=== PATIENT | male | born 1955 | race Caucasian/White ===

== ENCOUNTER 2022-10-16 09:49 | Inpatient (IN) | payer MEDICARE, OTHER ==
[2022-10-16] MEDS ORDERED: ALBUTEROL SO4 2.5/IPRATROPIUM 0.5 INH SOL 3 ML VIAL.NEB. NEB ONE ×2 (10:55→11:00)
[2022-10-16 11:19] LABS: VENOUS BASE EXCESS 0.5 mmol/L (-2-2); VENOUS PCO2 33.5 mmHg (38-52); VENOUS PH 7.467 (7.310-7.410)
[2022-10-16 11:41] LABS: HEMATOCRIT 35.9 % (35.4-49); HEMOGLOBIN 11.8 GM/dL (11.7-16.9); MCH 30.3 pg (25.7-33.7); MEAN CELL VOLUME 91.8 fl (80-96); MEAN PLT VOLUME 8.9 fl (7.5-11.1); PLATELET COUNT 289 10^3/uL (134-434); RBC 3.91 M/mm3 (4.00-5.60); RDW 14.9 % (11.9-15.9); WHITE BLOOD COUNT 15.9 K/mm3 (4.0-10.0)
[2022-10-16 11:54] LABS: POTASSIUM 4.2 mmol/L (3.5-5.1)
[2022-10-16 11:56] LABS: ALBUMIN 3.1 g/dl (3.4-5.0); BLOOD UREA NITROGEN 14.9 mg/dL (7-18); CALCIUM 9.5 mg/dL (8.5-10.1)
[2022-10-16 11:59] LABS: CREATININE 0.9 mg/dL (0.55-1.3)
[2022-10-16 12:01] LABS: BILIRUBIN,TOTAL 0.4 mg/dL (0.2-1); TOT PROT 7.5 g/dl (6.4-8.2)
[2022-10-16 12:04] LABS: N-TERMINAL BNP 1860.4 pg/ml (5-125)
[2022-10-16 12:05] LABS: ACTIVATED PTT 29.1 SECONDS (25.2-36.5); INR 1.16 (0.83-1.09); PROTHROMBIN TIME (PATIENT) 13.4 SEC (9.7-13.0)
[2022-10-16] MEDS ORDERED: AZITHROMYCIN IVPB 500 MG in DEXTROSE 5%-WATER - 250 ML IVPB ONE (12:06)
[2022-10-16] MEDS ORDERED: CEFTRIAXONE 1 GM in DEXTROSE 5%-WATER - 100 ML IVPB ONE (12:06)
[2022-10-16 12:14] LABS: LACTIC ACID 2.2 mmol/L (0.4-2.0)
[2022-10-16 12:16] LABS: ANISOCYTOSIS 0; HELMET CELLS 0; HOWELL-JOLLY BODIES 0; MACROCYTOSIS 0; OVALOCYTE 0; ROULEAU 0; SICKELED CELLS 0; TARGET CELLS 0; TEAR DROP CELLS 0; TOXIC GRANULATION 0
[2022-10-16] MEDS ORDERED: CEFTRIAXONE 1 GM/50 ML BAG ONE (12:22)
[2022-10-16] MEDS ORDERED: AZITHROMYCIN IVPB 500 MG/250 ML BAG IVPB ONE (12:22)
[2022-10-16] MEDS ORDERED: LACTATED RINGERS SOLUTION 1,000 ML/1,000 ML INFUS.BAG IV STA (13:52)
[2022-10-16] MEDS ORDERED: ALBUTEROL SO4 2.5/IPRATROPIUM 0.5 INH SOL 3 ML VIAL.NEB. NEB PRN (16:14)
[2022-10-16] MEDS ORDERED: ACETAMINOPHEN 500 MG TABLET (FP) ONE (17:25)
[2022-10-16] MEDS: ACETAMINOPHEN 500 MG TABLET (FP) PO PRN (17:28)
[2022-10-16 18:27] LABS: LACTIC ACID 2.2 mmol/L (0.4-2.0)
[2022-10-16] MEDS ORDERED: ACETAMINOPHEN 1000 MG/100 ML BAG IVPB ONE (22:33)
[2022-10-16] MEDS: HEPARIN NA (PORCINE) 5,000 UNITS/ML 1ML VIAL SQ SCH (23:01)
[2022-10-16] MEDS: METOPROLOL TARTRATE 5 MG/5 ML VIAL IVPUSH PRN (23:04)
[2022-10-17 01:26] VITALS: BMI 30.3
[2022-10-17 08:12] LABS: BLOOD UREA NITROGEN 16.8 mg/dL (7-18); CALCIUM 9.2 mg/dL (8.5-10.1)
[2022-10-17 08:14] LABS: HEMATOCRIT 34.4 % (35.4-49); HEMOGLOBIN 11.5 GM/dL (11.7-16.9); MCH 30.2 pg (25.7-33.7); MCHC 33.5 g/dl (32.0-35.9); MEAN PLT VOLUME 8.2 fl (7.5-11.1); PLATELET COUNT 331 10^3/uL (134-434); RBC 3.82 M/mm3 (4.00-5.60); RDW 15.5 % (11.9-15.9); WHITE BLOOD COUNT 11.8 K/mm3 (4.0-10.0)
[2022-10-17 08:15] LABS: CREATININE 0.8 mg/dL (0.55-1.3)
[2022-10-17 08:54] LABS: ANISOCYTOSIS 0; HELMET CELLS 0; HOWELL-JOLLY BODIES 0; MACROCYTOSIS 0; OVALOCYTE 0; ROULEAU 0; SICKELED CELLS 0; TARGET CELLS 0; TEAR DROP CELLS 0; TOXIC GRANULATION 0
[2022-10-17] MEDS: ACETAMINOPHEN 500 MG TABLET (FP) PO PRN ×2 (10:07→18:31)
[2022-10-17] MEDS: ASPIRIN 81 MG CHEWABLE TABLETS PO SCH (10:07)
[2022-10-17] MEDS: HEPARIN NA (PORCINE) 5,000 UNITS/ML 1ML VIAL SQ SCH ×2 (10:08→22:31)
[2022-10-17] MEDS: METOPROLOL TARTRATE 5 MG/5 ML VIAL IVPUSH PRN (11:44)
[2022-10-17] MEDS ORDERED: ALBUTEROL SO4 0.083% IH SOL 2.5 MG/3 ML VIAL.NEB. NEB PRN (15:49)
[2022-10-17] MEDS ORDERED: FLUTICASONE/UMECLIDIN/VILANTER(200-62.5-25 TRELEGY ELLIPTA) INAHLER IH SCH (16:00)
[2022-10-17] MEDS: TIOTROPIUM BROMIDE 2.5 MCG (SPIRIVA) RESPIMAT INHALER IH SCH (19:03)
[2022-10-17] MEDS ORDERED: SODIUM CHLORIDE FOR INHALATION 3 ML VIAL.NEB IH ONE (21:26)
[2022-10-17] MEDS: ACETAMINOPHEN 1000 MG/100 ML BAG IVPB PRN (22:31)
[2022-10-17] MEDS: BUDESONIDE/FORMETEROL FUMARATE 160/4.5 mcg INHALER IH SCH (22:33)
[2022-10-18] MEDS: PIPERACILLIN/TAZOB 4.5 GM 4.5 GM in DEXTROSE 5%-WATER 100 ML IVPB SCH ×3 (01:47→18:55)
[2022-10-18] MEDS: HEPARIN NA (PORCINE) 5,000 UNITS/ML 1ML VIAL SQ SCH ×2 (10:07→21:12)
[2022-10-18] MEDS: metoPROLOL SUCCINATE 25 MG TAB.SR.24H (FP) PO SCH (10:07)
[2022-10-18] MEDS: DOCUSATE SODIUM 100 MG CAPSULE (FP) PO SCH ×2 (10:07→21:12)
[2022-10-18] MEDS: ASPIRIN 81 MG CHEWABLE TABLETS PO SCH (10:07)
[2022-10-18] MEDS: BUDESONIDE/FORMETEROL FUMARATE 160/4.5 mcg INHALER IH SCH ×2 (10:08→21:15)
[2022-10-18] MEDS: TIOTROPIUM BROMIDE 2.5 MCG (SPIRIVA) RESPIMAT INHALER IH SCH (10:08)
[2022-10-18] MEDS: ACETAMINOPHEN 1000 MG/100 ML BAG IVPB PRN (14:33)
[2022-10-19] MEDS: PIPERACILLIN/TAZOB 4.5 GM 4.5 GM in DEXTROSE 5%-WATER 100 ML IVPB SCH ×3 (02:33→17:00)
[2022-10-19] MEDS: HEPARIN NA (PORCINE) 5,000 UNITS/ML 1ML VIAL SQ SCH ×2 (10:02→22:48)
[2022-10-19] MEDS: POLYETHYLENE GLYCOL (HEALTHYLAX) 3350 17 GM PACKET PO PRN (10:02)
[2022-10-19] MEDS: ASPIRIN 81 MG CHEWABLE TABLETS PO SCH (10:02)
[2022-10-19] MEDS: DOCUSATE SODIUM 100 MG CAPSULE (FP) PO SCH ×2 (10:02→22:48)
[2022-10-19] MEDS: metoPROLOL SUCCINATE 25 MG TAB.SR.24H (FP) PO SCH (10:02)
[2022-10-19] MEDS: BUDESONIDE/FORMETEROL FUMARATE 160/4.5 mcg INHALER IH SCH ×2 (10:14→22:48)
[2022-10-19] MEDS: TIOTROPIUM BROMIDE 2.5 MCG (SPIRIVA) RESPIMAT INHALER IH SCH (10:14)
[2022-10-19] MEDS: ACETAMINOPHEN 1000 MG/100 ML BAG IVPB PRN (11:52)
[2022-10-20] MEDS: PIPERACILLIN/TAZOB 4.5 GM 4.5 GM in DEXTROSE 5%-WATER 100 ML IVPB SCH ×3 (02:44→18:01)
[2022-10-20 08:28] LABS: HEMOGLOBIN 10.9 GM/dL (11.7-16.9); MCH 29.5 pg (25.7-33.7); MEAN CELL VOLUME 92.1 fl (80-96); MEAN PLT VOLUME 8.6 fl (7.5-11.1); PLATELET COUNT 316 10^3/uL (134-434); RBC 3.69 M/mm3 (4.00-5.60); RDW 15.3 % (11.9-15.9); WHITE BLOOD COUNT 11.1 K/mm3 (4.0-10.0)
[2022-10-20 08:38] LABS: POTASSIUM 4.5 mmol/L (3.5-5.1)
[2022-10-20 08:40] LABS: CALCIUM 9.3 mg/dL (8.5-10.1)
[2022-10-20 08:43] LABS: ALBUMIN 2.6 g/dl (3.4-5.0)
[2022-10-20 08:46] LABS: CREATININE 0.9 mg/dL (0.55-1.3)
[2022-10-20 08:48] LABS: BILIRUBIN,TOTAL 0.4 mg/dL (0.2-1); TOT PROT 6.8 g/dl (6.4-8.2)
[2022-10-20] MEDS: metoPROLOL SUCCINATE 25 MG TAB.SR.24H (FP) PO SCH (10:22)
[2022-10-20] MEDS: ASPIRIN 81 MG CHEWABLE TABLETS PO SCH (10:22)
[2022-10-20] MEDS: BUDESONIDE/FORMETEROL FUMARATE 160/4.5 mcg INHALER IH SCH ×2 (10:23→22:14)
[2022-10-20] MEDS: TIOTROPIUM BROMIDE 2.5 MCG (SPIRIVA) RESPIMAT INHALER IH SCH (10:23)
[2022-10-20] MEDS: DOCUSATE SODIUM 100 MG CAPSULE (FP) PO SCH ×2 (10:23→21:56)
[2022-10-20] MEDS: HEPARIN NA (PORCINE) 5,000 UNITS/ML 1ML VIAL SQ SCH ×2 (10:23→21:56)
[2022-10-20] MEDS: ACETAMINOPHEN 1000 MG/100 ML BAG IVPB PRN (11:14)
[2022-10-20] MEDS: ACETAMINOPHEN 500 MG TABLET (FP) PO PRN (18:58)
[2022-10-20] MEDS: PANTOPRAZOLE 40 MG TABLET PO SCH (21:56)
[2022-10-21] MEDS: PIPERACILLIN/TAZOB 4.5 GM 4.5 GM in DEXTROSE 5%-WATER 100 ML IVPB SCH ×3 (01:43→17:16)
[2022-10-21 08:48] LABS: POTASSIUM 4.5 mmol/L (3.5-5.1)
[2022-10-21 08:50] LABS: BASO % 0.8 % (0-2.0); EOS % 2.8 % (0-4.5); HEMATOCRIT 32.9 % (35.4-49); HEMOGLOBIN 10.8 GM/dL (11.7-16.9); MCH 30.1 pg (25.7-33.7); MCHC 32.8 g/dl (32.0-35.9); MEAN CELL VOLUME 91.7 fl (80-96); MEAN PLT VOLUME 8.8 fl (7.5-11.1); MONO % 8.5 % (3.8-10.2); NEUT % 74.9 % (42.8-82.8); PLATELET COUNT 323 10^3/uL (134-434); RBC 3.59 M/mm3 (4.00-5.60); RDW 15.5 % (11.9-15.9); WHITE BLOOD COUNT 10.4 K/mm3 (4.0-10.0)
[2022-10-21 08:53] LABS: ALBUMIN 2.6 g/dl (3.4-5.0); BLOOD UREA NITROGEN 14.7 mg/dL (7-18); CALCIUM 8.5 mg/dL (8.5-10.1)
[2022-10-21 08:57] LABS: TOT PROT 6.6 g/dl (6.4-8.2)
[2022-10-21 08:58] LABS: BILIRUBIN,TOTAL 0.4 mg/dL (0.2-1)
[2022-10-21] MEDS: DOCUSATE SODIUM 100 MG CAPSULE (FP) PO SCH ×2 (09:15→21:14)
[2022-10-21] MEDS: HEPARIN NA (PORCINE) 5,000 UNITS/ML 1ML VIAL SQ SCH ×2 (09:15→21:14)
[2022-10-21] MEDS: metoPROLOL SUCCINATE 25 MG TAB.SR.24H (FP) PO SCH (09:15)
[2022-10-21] MEDS: ASPIRIN 81 MG CHEWABLE TABLETS PO SCH (09:15)
[2022-10-21] MEDS: PANTOPRAZOLE 40 MG TABLET PO SCH (09:15)
[2022-10-21] MEDS: TIOTROPIUM BROMIDE 2.5 MCG (SPIRIVA) RESPIMAT INHALER IH SCH (09:16)
[2022-10-21] MEDS: BUDESONIDE/FORMETEROL FUMARATE 160/4.5 mcg INHALER IH SCH ×2 (09:16→21:15)
[2022-10-21] MEDS: ACETAMINOPHEN 500 MG TABLET (FP) PO PRN (22:00)
[2022-10-22] MEDS: PIPERACILLIN/TAZOB 4.5 GM 4.5 GM in DEXTROSE 5%-WATER 100 ML IVPB SCH ×3 (01:01→19:06)
[2022-10-22 09:10] LABS: BASO % 0.8 % (0-2.0); EOS % 1.9 % (0-4.5); HEMATOCRIT 34.9 % (35.4-49); HEMOGLOBIN 11.9 GM/dL (11.7-16.9); LYMPH % 17.1 % (8-40); MCH 30.6 pg (25.7-33.7); MCHC 33.9 g/dl (32.0-35.9); MEAN CELL VOLUME 90.3 fl (80-96); MEAN PLT VOLUME 8.1 fl (7.5-11.1); NEUT % 71.2 % (42.8-82.8); PLATELET COUNT 335 10^3/uL (134-434); RBC 3.87 M/mm3 (4.00-5.60); RDW 15.4 % (11.9-15.9); WHITE BLOOD COUNT 11.6 K/mm3 (4.0-10.0)
[2022-10-22 09:15] LABS: INR 1.04 (0.83-1.09); PROTHROMBIN TIME (PATIENT) 12.1 SEC (9.7-13.0)
[2022-10-22 09:17] LABS: ACTIVATED PTT 28.4 SECONDS (25.2-36.5)
[2022-10-22 09:24] LABS: POTASSIUM 4.8 mmol/L (3.5-5.1)
[2022-10-22 09:30] LABS: ALBUMIN 2.8 g/dl (3.4-5.0); BLOOD UREA NITROGEN 17.1 mg/dL (7-18)
[2022-10-22 09:32] LABS: PHOSPHOROUS 2.9 mg/dL (2.5-4.9)
[2022-10-22 09:33] LABS: CREATININE 1.1 mg/dL (0.55-1.3)
[2022-10-22 09:34] LABS: BILIRUBIN,TOTAL 0.4 mg/dL (0.2-1); TOT PROT 7.3 g/dl (6.4-8.2)
[2022-10-22] MEDS: ASPIRIN 81 MG CHEWABLE TABLETS PO SCH (10:25)
[2022-10-22] MEDS: PANTOPRAZOLE 40 MG TABLET PO SCH (10:25)
[2022-10-22] MEDS: metoPROLOL SUCCINATE 25 MG TAB.SR.24H (FP) PO SCH (10:25)
[2022-10-22] MEDS: HEPARIN NA (PORCINE) 5,000 UNITS/ML 1ML VIAL SQ SCH ×2 (10:25→22:33)
[2022-10-22] MEDS: DOCUSATE SODIUM 100 MG CAPSULE (FP) PO SCH ×2 (10:25→22:33)
[2022-10-22] MEDS: TIOTROPIUM BROMIDE 2.5 MCG (SPIRIVA) RESPIMAT INHALER IH SCH (10:56)
[2022-10-22] MEDS: BUDESONIDE/FORMETEROL FUMARATE 160/4.5 mcg INHALER IH SCH ×2 (10:56→22:33)
[2022-10-22] MEDS: KETOCONAZOLE 2% TOPICAL CREAM 15 GM TUBE TP SCH ×2 (11:58→22:33)
[2022-10-22] MEDS: ACETAMINOPHEN 500 MG TABLET (FP) PO PRN (19:07)
[2022-10-23] MEDS: PIPERACILLIN/TAZOB 4.5 GM 4.5 GM in DEXTROSE 5%-WATER 100 ML IVPB SCH ×3 (01:38→18:23)
[2022-10-23] MEDS ORDERED: ACETAMINOPHEN 1000 MG/100 ML BAG IVPB PRN (08:39)
[2022-10-23] MEDS: KETOCONAZOLE 2% TOPICAL CREAM 15 GM TUBE TP SCH ×2 (09:58→21:24)
[2022-10-23] MEDS: DOCUSATE SODIUM 100 MG CAPSULE (FP) PO SCH ×3 (09:58→21:22)
[2022-10-23] MEDS: ASPIRIN 81 MG CHEWABLE TABLETS PO SCH (09:58)
[2022-10-23] MEDS: PANTOPRAZOLE 40 MG TABLET PO SCH (09:58)
[2022-10-23] MEDS: BUDESONIDE/FORMETEROL FUMARATE 160/4.5 mcg INHALER IH SCH ×2 (09:59→21:25)
[2022-10-23] MEDS: metoPROLOL SUCCINATE 25 MG TAB.SR.24H (FP) PO SCH (09:59)
[2022-10-23] MEDS: TIOTROPIUM BROMIDE 2.5 MCG (SPIRIVA) RESPIMAT INHALER IH SCH (09:59)
[2022-10-23] MEDS: ACETAMINOPHEN 500 MG TABLET (FP) PO PRN (10:17)
[2022-10-23] MEDS ORDERED: ALBUTEROL SO4 HFA INHALER IH ONE (13:17)
[2022-10-23] MEDS ORDERED: LIDOCAINE HCL/PF 2% SDV 5ML VIAL ONE (14:09)
[2022-10-23] MEDS ORDERED: SUCCINYLCHOLINE CHLORIDE 200 MG/10 ML SYRINGE ONE (14:10)
[2022-10-23] MEDS ORDERED: MIDAZOLAM HCL 2 MG/2 ML SINGLE DOSE VIAL ONE ×2 (14:10→14:55)
[2022-10-23] MEDS ORDERED: ONDANSETRON 4 MG/2 ML VIAL IVPUSH PRN (15:41)
[2022-10-23] MEDS ORDERED: PROMETHAZINE HCL 25 MG/1 ML VIAL IVPB PRN (15:41)
[2022-10-23] MEDS ORDERED: ACETAMINOPHEN 1000 MG/100 ML BAG IVPB ONE (15:42)
[2022-10-23] MEDS ORDERED: LACTATED RINGERS SOLUTION 1,000 ML IV SCH (15:45)
[2022-10-23] MEDS ORDERED: ACETAMINOPHEN INJECTION 100 ML IVPB ONE (16:40)
[2022-10-24] MEDS: PIPERACILLIN/TAZOB 4.5 GM 4.5 GM in DEXTROSE 5%-WATER 100 ML IVPB SCH ×3 (01:27→17:30)
[2022-10-24] MEDS: PANTOPRAZOLE 40 MG TABLET PO SCH (09:38)
[2022-10-24] MEDS: TIOTROPIUM BROMIDE 2.5 MCG (SPIRIVA) RESPIMAT INHALER IH SCH (09:38)
[2022-10-24] MEDS: metoPROLOL SUCCINATE 25 MG TAB.SR.24H (FP) PO SCH (09:38)
[2022-10-24] MEDS: ASPIRIN 81 MG CHEWABLE TABLETS PO SCH (09:38)
[2022-10-24] MEDS: KETOCONAZOLE 2% TOPICAL CREAM 15 GM TUBE TP SCH ×2 (09:38→21:27)
[2022-10-24] MEDS: BUDESONIDE/FORMETEROL FUMARATE 160/4.5 mcg INHALER IH SCH ×2 (09:38→21:27)
[2022-10-24] MEDS: DOCUSATE SODIUM 100 MG CAPSULE (FP) PO SCH ×2 (09:38→21:27)
[2022-10-24] MEDS: ACETAMINOPHEN 500 MG TABLET (FP) PO PRN (19:54)
[2022-10-25] MEDS: PIPERACILLIN/TAZOB 4.5 GM 4.5 GM in DEXTROSE 5%-WATER 100 ML IVPB SCH ×3 (01:37→18:06)
[2022-10-25] MEDS: DOCUSATE SODIUM 100 MG CAPSULE (FP) PO SCH ×2 (10:02→22:59)
[2022-10-25] MEDS: POLYETHYLENE GLYCOL (HEALTHYLAX) 3350 17 GM PACKET PO PRN (10:02)
[2022-10-25] MEDS: ASPIRIN 81 MG CHEWABLE TABLETS PO SCH (10:02)
[2022-10-25] MEDS: PANTOPRAZOLE 40 MG TABLET PO SCH (10:02)
[2022-10-25] MEDS: metoPROLOL SUCCINATE 25 MG TAB.SR.24H (FP) PO SCH (10:02)
[2022-10-25] MEDS: BUDESONIDE/FORMETEROL FUMARATE 160/4.5 mcg INHALER IH SCH (10:27)
[2022-10-25] MEDS: TIOTROPIUM BROMIDE 2.5 MCG (SPIRIVA) RESPIMAT INHALER IH SCH (10:27)
[2022-10-25] MEDS: KETOCONAZOLE 2% TOPICAL CREAM 15 GM TUBE TP SCH ×2 (10:28→23:00)
[2022-10-25] MEDS: FLUTICASONE/UMECLIDIN/VILANTER(200-62.5-25 TRELEGY ELLIPTA) INAHLER IH SCH (16:03)
[2022-10-25] MEDS: ACETAMINOPHEN 500 MG TABLET (FP) PO PRN (23:25)
[2022-10-26] MEDS: PIPERACILLIN/TAZOB 4.5 GM 4.5 GM in DEXTROSE 5%-WATER 100 ML IVPB SCH ×2 (02:17→10:22)
[2022-10-26] MEDS: metoPROLOL SUCCINATE 25 MG TAB.SR.24H (FP) PO SCH (10:23)
[2022-10-26] MEDS: ASPIRIN 81 MG CHEWABLE TABLETS PO SCH (10:23)
[2022-10-26] MEDS: PANTOPRAZOLE 40 MG TABLET PO SCH (10:23)
[2022-10-26] MEDS: DOCUSATE SODIUM 100 MG CAPSULE (FP) PO SCH ×2 (10:23→22:07)
[2022-10-26] MEDS: FLUTICASONE/UMECLIDIN/VILANTER(200-62.5-25 TRELEGY ELLIPTA) INAHLER IH SCH (10:24)
[2022-10-26] MEDS: KETOCONAZOLE 2% TOPICAL CREAM 15 GM TUBE TP SCH ×2 (10:24→22:09)
[2022-10-26] MEDS: ACETAMINOPHEN 500 MG TABLET (FP) PO PRN (14:47)
[2022-10-26] MEDS: AMOX TR/POT CLAV 875MG/125MG TABLETS (FP) PO SCH (18:39)
[2022-10-27 06:46] VITALS: TEMP 97.8
[2022-10-27 09:06] VITALS: BP 131/81; PULSE 95; RESP 16
[2022-10-27] MEDS: AMOX TR/POT CLAV 875MG/125MG TABLETS (FP) PO SCH (09:25)
[2022-10-27] MEDS: metoPROLOL SUCCINATE 25 MG TAB.SR.24H (FP) PO SCH (09:26)
[2022-10-27] MEDS: ASPIRIN 81 MG CHEWABLE TABLETS PO SCH (09:26)
[2022-10-27] MEDS: FLUTICASONE/UMECLIDIN/VILANTER(200-62.5-25 TRELEGY ELLIPTA) INAHLER IH SCH (09:26)
[2022-10-27] MEDS: KETOCONAZOLE 2% TOPICAL CREAM 15 GM TUBE TP SCH (09:26)
[2022-10-27] MEDS: DOCUSATE SODIUM 100 MG CAPSULE (FP) PO SCH (09:26)
[2022-10-27] MEDS: PANTOPRAZOLE 40 MG TABLET PO SCH (09:26)
== END 2022-10-27 12:00 | disposition home health service (06) | DRG 194 ==
LOC: JER 09:49 → JERBED 14:36 → J4W 21:46 → J4S 10-17 17:16
PROVIDERS: ADMIT Internal Medicine; ATTEND Student in an Organized Health Care Education/Training Program
PROC: 0BDC8ZX Extraction of Right Upper Lung Lobe, Via Natural or Artificial Opening Endoscopic, Diagnostic (ICD-10-PCS; principal; 2022-10-23 15:00)
DX: J18.9 Pneumonia, unspecified organism (principal); J44.0 Chronic obstructive pulmonary disease with (acute) lower respiratory infection; R09.02 Hypoxemia; E78.5 Hyperlipidemia, unspecified; J84.10 Pulmonary fibrosis, unspecified; C61 Malignant neoplasm of prostate; R91.1 Solitary pulmonary nodule; I10 Essential (primary) hypertension; E66.9 Obesity, unspecified; Z68.30 Body mass index [BMI] 30.0-30.9, adult
CPT/HCPCS: 0241U-QW; 36415; 71045-TC-FY; 71275-TC; 80048; 80053; 82308; 82803; 83605; 83735; 83880; 84100; 84484; 85025; 85027; 85610; 85730; 86480; 87070; 87102; 87116; 87205; 87206; 87210; 87305; 87449; 87899; 93005; 93010; 94760; 94761; 99285-25; J1644; Q9967

== ENCOUNTER 2024-02-09 19:46 | Inpatient (IN) | payer MEDICARE, OTHER ==
[2024-02-09] MEDS ORDERED: ACETAMINOPHEN INJECTION 100 ML ONE (21:21)
[2024-02-09] MEDS ORDERED: MAG HYDROX/AL HYDROX/SIMETH 30 ML UNIT-DOSE CUP ONE (21:21)
[2024-02-09] MEDS ORDERED: ONDANSETRON 4 MG/2 ML VIAL ONE (21:22)
[2024-02-09] MEDS ORDERED: FAMOTIDINE 20 MG/50 ML IVPB 20 MG/50 ML MG IVPB ONE (21:22)
[2024-02-09] MEDS: ACETAMINOPHEN 1000 MG/100 ML BAG IVPB ONE (21:29)
[2024-02-09] MEDS: SODIUM CHLORIDE 0.9% 1000 ML INFUS.BAG IV ONE (21:29)
[2024-02-09] MEDS: MAG HYDROX/AL HYDROX/SIMETH 30 ML UNIT-DOSE CUP PO ONE (21:29)
[2024-02-09] MEDS: FAMOTIDINE 20 MG/50 ML IVPB 20 MG/50 ML MG IVPB ONE (21:30)
[2024-02-09] MEDS: ONDANSETRON 4 MG/2 ML VIAL IVPUSH ONE (21:30)
[2024-02-09 21:52] LABS: POTASSIUM 4.3 mmol/L (3.5-5.1)
[2024-02-09 21:53] LABS: BASO % 0.4 % (0-2.0); EOS % 0.1 % (0-4.5); HEMATOCRIT 40.9 % (35.4-49); HEMOGLOBIN 13.4 GM/dL (11.7-16.9); LYMPH % 12.3 % (8-40); MCH 30.1 pg (25.7-33.7); MCHC 32.8 g/dl (32.0-35.9); MEAN CELL VOLUME 91.8 fl (80-96); MEAN PLT VOLUME 8.6 fl (7.5-11.1); MONO % 6.1 % (3.8-10.2); NEUT % 81.1 % (42.8-82.8); PLATELET COUNT 195 10^3/uL (134-434); RBC 4.46 M/mm3 (4.00-5.60); RDW 14.3 % (11.9-15.9); WHITE BLOOD COUNT 16.5 K/mm3 (4.0-10.0)
[2024-02-09 21:55] LABS: ALBUMIN 3.4 g/dl (3.4-5.0); BLOOD UREA NITROGEN 16.9 mg/dL (7-18); CALCIUM 8.9 mg/dL (8.5-10.1); MAGNESIUM 2.1 mg/dL (1.8-2.4)
[2024-02-09 21:58] LABS: PHOSPHOROUS 2.9 mg/dL (2.5-4.9)
[2024-02-09 21:59] LABS: BILIRUBIN,TOTAL 2.3 mg/dL (0.2-1)
[2024-02-09 22:00] LABS: TOT PROT 6.2 g/dl (6.4-8.2)
[2024-02-09 22:49] LABS: HIV INTERPRETATION NEGATIVE (NEGATIVE)
[2024-02-10] MEDS ORDERED: SUCRALFATE 1 GM TABLET (FP) ONE (01:15)
[2024-02-10] MEDS: SUCRALFATE 1 GM TABLET (FP) PO ONE (01:24)
[2024-02-10] MEDS ORDERED: ACETAMINOPHEN INJECTION 100 ML ONE (02:39)
[2024-02-10] MEDS ORDERED: PIPERACILLIN/TAZOB 4.5 GM 4.5 GM/100 ML BAG IVPB ONE (02:40)
[2024-02-10] MEDS: PIPERACILLIN/TAZOB 4.5 GM 4.5 GM in DEXTROSE 5%-WATER 100 ML IVPB ONE (02:48)
[2024-02-10] MEDS ORDERED: MORPHINE SULFATE 2 MG/ML SYRINGE ONE (02:49)
[2024-02-10] MEDS: morphine SULFATE 4 MG/ML VIAL IVPUSH ONE (02:55)
[2024-02-10] MEDS: LORazepam 1 MG TABLET PO ONE (04:40)
[2024-02-10] MEDS ORDERED: FOLIC ACID INJECTION - 1 MG, THIAMINE HCL 100 MG, MULTIVIT INJECTION ADULT 10 ML in SOD... IVPB ONE (04:42)
[2024-02-10] MEDS: SODIUM CHLORIDE 1,000 ML IV SCH (05:53)
[2024-02-10 06:49] LABS: URINE COLOR DK YELLOW
[2024-02-10 06:50] LABS: URINE APPEARANCE CLEAR; URINE BILIRUBIN SMALL (NEGATIVE); URINE GLUCOSE (UA) NEGATIVE (NEGATIVE); URINE KETONE NEGATIVE (NEGATIVE)
[2024-02-10 06:51] LABS: URINE LEUK ESTERASE NEGATIVE (NEGATIVE); URINE NITRITE NEGATIVE (NEGATIVE); URINE PROTEIN 30 (NEGATIVE)
[2024-02-10 06:53] LABS: URINE RBC 167.6 /uL (0-23.9); URINE WBC 71.6 /uL (0-25.8)
[2024-02-10 06:54] LABS: EPI CELLS 23.4 /uL (0-25.1); HYALINE CASTS 1.37 /uL (0-3.1); URINE BACTERIA 91.6 /uL (0-1359)
[2024-02-10] MEDS: INSULIN ASPART SLIDING SCALE (NOVOLOG) 1 VIAL SQ SCH (08:30)
[2024-02-10 08:49] LABS: BASO % 0.3 % (0-2.0); HEMOGLOBIN 13.1 GM/dL (11.7-16.9); MCH 31.2 pg (25.7-33.7); MCHC 34.5 g/dl (32.0-35.9); MEAN CELL VOLUME 90.6 fl (80-96); MONO % 4.2 % (3.8-10.2); NEUT % 85.5 % (42.8-82.8); PLATELET COUNT 127 10^3/uL (134-434); RBC 4.19 M/mm3 (4.00-5.60); RDW 14.5 % (11.9-15.9); WHITE BLOOD COUNT 17.6 K/mm3 (4.0-10.0)
[2024-02-10 09:09] LABS: POTASSIUM 4.7 mmol/L (3.5-5.1)
[2024-02-10 09:28] LABS: ALBUMIN 3.6 g/dl (3.4-5.0)
[2024-02-10 09:29] LABS: BLOOD UREA NITROGEN 19.5 mg/dL (7-18)
[2024-02-10 09:32] LABS: CREATININE 1.1 mg/dL (0.55-1.3); PHOSPHOROUS 3.9 mg/dL (2.5-4.9)
[2024-02-10 09:33] LABS: TOT PROT 6.1 g/dl (6.4-8.2)
[2024-02-10 09:35] LABS: BILIRUBIN,TOTAL 2.8 mg/dL (0.2-1)
[2024-02-10] MEDS ORDERED: FOLIC ACID 1 MG TABLET (FP) ONE (09:41)
[2024-02-10] MEDS ORDERED: CEFTRIAXONE 1 G/50 ML PREMIX 50 ML IVPB ONE (09:41)
[2024-02-10] MEDS: FOLIC ACID 1 MG TABLET (FP) PO SCH (10:22)
[2024-02-10] MEDS: ENOXAPARIN NA (PORCINE) 40 MG/0.4 ML DISP.SYRIN SQ SCH (10:22)
[2024-02-10] MEDS: THIAMINE HCL 200 MG/2 ML VIAL IVPB SCH (10:22)
[2024-02-10] MEDS: CEFTRIAXONE 1 G/50 ML PREMIX 50 ML IVPB SCH (10:41)
[2024-02-10 11:43] VITALS: BMI 30.5
[2024-02-10] MEDS: LORazepam 1 MG TABLET PO PRN (16:26)
[2024-02-10] MEDS ORDERED: ALBUTEROL SO4 HFA INHALER IH PRN (19:06)
[2024-02-10] MEDS: metoPROLOL SUCCINATE 25 MG TAB.SR.24H (FP) PO SCH (20:15)
[2024-02-10] MEDS: VALSARTAN 80 MG TABLET PO SCH (20:15)
[2024-02-11] MEDS: LORazepam 1 MG TABLET PO SCH (05:18)
[2024-02-11 09:00] LABS: HEMATOCRIT 35.9 % (35.4-49); HEMOGLOBIN 12.6 GM/dL (11.7-16.9); MCH 31.9 pg (25.7-33.7); MCHC 35.1 g/dl (32.0-35.9); MEAN CELL VOLUME 90.7 fl (80-96); MEAN PLT VOLUME 8.8 fl (7.5-11.1); PLATELET COUNT 123 10^3/uL (134-434); RBC 3.95 M/mm3 (4.00-5.60); RDW 14.7 % (11.9-15.9); WHITE BLOOD COUNT 9.7 K/mm3 (4.0-10.0)
[2024-02-11 09:21] LABS: BLOOD UREA NITROGEN 19.4 mg/dL (7-18); CALCIUM 8.5 mg/dL (8.5-10.1)
[2024-02-11 09:25] LABS: TOT PROT 5.4 g/dl (6.4-8.2)
[2024-02-11 09:26] LABS: BILIRUBIN,TOTAL 7.4 mg/dL (0.2-1)
[2024-02-11 09:28] LABS: INR 1.18 (0.83-1.09); PROTHROMBIN TIME (PATIENT) 13.3 SEC (9.7-13.0)
[2024-02-11] MEDS ORDERED: MIDAZOLAM HCL 2 MG/2 ML SINGLE DOSE VIAL ONE (11:21)
[2024-02-11] MEDS ORDERED: GLUCAGON 1 MG KIT ONE (13:09)
[2024-02-11] MEDS: FUROSEMIDE 40 MG TABLET (FP) PO SCH (15:28)
[2024-02-11] MEDS: FLUTICASONE/UMECLIDIN/VILANTER(200-62.5-25 TRELEGY ELLIPTA) INAHLER IH SCH (15:29)
[2024-02-11] MEDS: LACTATED RINGERS SOLUTION 1000 ML INFUS.BAG IV SCH (15:49)
[2024-02-11] MEDS: INDOMETHACIN 50 MG RECTAL SUPPOSITORY PR ONE (20:06)
[2024-02-12] MEDS ORDERED: LORazepam 0.5 MG TABLET PO PRN
[2024-02-12] MEDS ORDERED: LORazepam 0.5 MG TABLET PO SCH (05:00)
[2024-02-12] MEDS: LORazepam 1 MG TABLET PO PRN (09:16)
[2024-02-12 09:45] LABS: BASO % 0.7 % (0-2.0); EOS % 4.2 % (0-4.5); HEMATOCRIT 39.1 % (35.4-49); LYMPH % 24.2 % (8-40); MCH 30.7 pg (25.7-33.7); MCHC 33.2 g/dl (32.0-35.9); MEAN CELL VOLUME 92.6 fl (80-96); MONO % 7.5 % (3.8-10.2); NEUT % 63.4 % (42.8-82.8); RBC 4.22 M/mm3 (4.00-5.60); RDW 14.8 % (11.9-15.9); WHITE BLOOD COUNT 8.1 K/mm3 (4.0-10.0)
[2024-02-12 10:02] LABS: POTASSIUM 3.6 mmol/L (3.5-5.1)
[2024-02-12 10:21] LABS: BLOOD UREA NITROGEN 16.5 mg/dL (7-18); CALCIUM 8.8 mg/dL (8.5-10.1)
[2024-02-12 10:22] LABS: MAGNESIUM 2.1 mg/dL (1.8-2.4)
[2024-02-12 10:25] LABS: BILIRUBIN,DIRECT 3.6 mg/dL (0.0-0.2); CREATININE 0.9 mg/dL (0.55-1.3); PHOSPHOROUS 2.2 mg/dL (2.5-4.9)
[2024-02-12 10:27] LABS: BILIRUBIN,TOTAL 4.5 mg/dL (0.2-1); TOT PROT 5.8 g/dl (6.4-8.2)
[2024-02-12] MEDS: NAPH,MB-DB/K PH,MBDB POWDER PACKET PO ONE (11:15)
[2024-02-13] MEDS: FAMOTIDINE 10 MG TABLET PO ONE (02:45)
[2024-02-13] MEDS ORDERED: LORazepam 0.5 MG TABLET PO ONE (05:00)
[2024-02-13 08:20] LABS: BASO % 0.5 % (0-2.0); EOS % 3.2 % (0-4.5); HEMATOCRIT 34.8 % (35.4-49); HEMOGLOBIN 11.9 GM/dL (11.7-16.9); LYMPH % 27.4 % (8-40); MCH 31.2 pg (25.7-33.7); MCHC 34.2 g/dl (32.0-35.9); MEAN CELL VOLUME 91.1 fl (80-96); MEAN PLT VOLUME 8.5 fl (7.5-11.1); MONO % 8.3 % (3.8-10.2); NEUT % 60.6 % (42.8-82.8); PLATELET COUNT 97 10^3/uL (134-434); RBC 3.82 M/mm3 (4.00-5.60); RDW 14.9 % (11.9-15.9); WHITE BLOOD COUNT 8.8 K/mm3 (4.0-10.0)
[2024-02-13 08:27] LABS: INR 1.01 (0.83-1.09); PROTHROMBIN TIME (PATIENT) 11.4 SEC (9.7-13.0)
[2024-02-13 08:38] LABS: POTASSIUM 3.5 mmol/L (3.5-5.1)
[2024-02-13 08:39] LABS: CALCIUM 8.3 mg/dL (8.5-10.1)
[2024-02-13 08:40] LABS: ALBUMIN 2.9 g/dl (3.4-5.0); BLOOD UREA NITROGEN 14.4 mg/dL (7-18)
[2024-02-13 08:43] LABS: CREATININE 0.9 mg/dL (0.55-1.3)
[2024-02-13 08:44] LABS: BILIRUBIN,TOTAL 2.5 mg/dL (0.2-1); TOT PROT 5.4 g/dl (6.4-8.2)
[2024-02-13 10:35] LABS: MAGNESIUM 1.8 mg/dL (1.8-2.4)
[2024-02-13 10:39] LABS: PHOSPHOROUS 2.4 mg/dL (2.5-4.9)
[2024-02-13] MEDS ORDERED: LIDOCAINE HCL/PF 2% SDV 5ML VIAL ONE (11:59)
[2024-02-13] MEDS: ceFAZolin SODIUM 1 GM VIAL IVPB ONE (12:37)
[2024-02-13] MEDS ORDERED: DEXAMETHASONE SOD PHOSPHATE 4 MG/1 ML VIAL ONE (12:42)
[2024-02-13] MEDS ORDERED: ONDANSETRON 4 MG/2 ML VIAL ONE (12:42)
[2024-02-13] MEDS ORDERED: oxyCODONE HCL 5 MG TABLET PO PRN (13:08)
[2024-02-13] MEDS ORDERED: ONDANSETRON 4 MG/2 ML VIAL IVPUSH PRN (13:08)
[2024-02-13] MEDS: SODIUM CHLORIDE 1,000 ML IV SCH (13:15)
[2024-02-13] MEDS: NAPH,MB-DB/K PH,MBDB POWDER PACKET PO ONE ×2 (15:44→22:28)
[2024-02-14 08:54] VITALS: BP 157/73; PULSE 99; RESP 19; TEMP 98.1
[2024-02-14 09:41] LABS: MAGNESIUM 1.9 mg/dL (1.8-2.4)
[2024-02-14 09:45] LABS: PHOSPHOROUS 2.2 mg/dL (2.5-4.9)
[2024-02-14] MEDS: MAG HYDROX/AL HYDROX/SIMETH 30 ML UNIT-DOSE CUP PO ONE (10:22)
== END 2024-02-14 11:56 | disposition home or self-care (01) | DRG 445 ==
LOC: EDBD 19:46 → JER 19:46 → JERBED 02-10 01:54 → EDBD 02-10 01:54 → J6S 02-10 10:55
PROVIDERS: ADMIT Internal Medicine; ATTEND Internal Medicine
PROC: 0DJ08ZZ Inspection of Upper Intestinal Tract, Via Natural or Artificial Opening Endoscopic (ICD-10-PCS; 2024-02-11 10:15)
PROC: 0F798DZ Dilation of Common Bile Duct with Intraluminal Device, Via Natural or Artificial Opening Endoscopic (ICD-10-PCS; principal; 2024-02-14)
DX: K83.1 Obstruction of bile duct (principal); K83.3 Fistula of bile duct; N13.2 Hydronephrosis with renal and ureteral calculous obstruction; K70.10 Alcoholic hepatitis without ascites; J44.9 Chronic obstructive pulmonary disease, unspecified; I10 Essential (primary) hypertension; F10.10 Alcohol abuse, uncomplicated; F17.210 Nicotine dependence, cigarettes, uncomplicated; R73.9 Hyperglycemia, unspecified; C61 Malignant neoplasm of prostate; E83.39 Other disorders of phosphorus metabolism; Z68.30 Body mass index [BMI] 30.0-30.9, adult; E66.9 Obesity, unspecified; K29.70 Gastritis, unspecified, without bleeding; K29.80 Duodenitis without bleeding
CPT/HCPCS: 36415; 74177-TC; 74181-TC; 74330-TC; 76000-TC-FY; 76705-TC; 80053; 80307; 81003; 82248; 82962; 83036; 83690; 83735; 84100; 84484; 85025; 85027; 85610; 86140; 86803; 86850; 86900; 86901; 87389; 93005; 93010; 94760; 99285-25; C2617; J0131; Q9967

== ENCOUNTER 2024-05-01 05:54 | Day surgery (SDC) | payer MEDICARE, OTHER ==
[2024-04-29 11:43] VITALS: BMI 29.2
[2024-05-01 10:09] VITALS: TEMP 98.1
[2024-05-01] MEDS ORDERED: KETAMINE HCL 200 MG/20 ML VIAL ONE (13:20)
[2024-05-01] MEDS ORDERED: MIDAZOLAM HCL 2 MG/2 ML SINGLE DOSE VIAL ONE (13:20)
[2024-05-01 15:24] VITALS: BP 125/62; PULSE 81; RESP 17
== END 2024-05-01 17:00 | disposition home or self-care (01) ==
LOC: JASU-ENDO 05:54
PROVIDERS: ATTEND Internal Medicine Gastroenterology
PROC: 0FPB8DZ Removal of Intraluminal Device from Hepatobiliary Duct, Via Natural or Artificial Opening Endoscopic (ICD-10-PCS; 2024-05-01)
PROC: 0FC98ZZ Extirpation of Matter from Common Bile Duct, Via Natural or Artificial Opening Endoscopic (ICD-10-PCS; principal; 2024-05-01 11:15)
DX: K80.50 Calculus of bile duct without cholangitis or cholecystitis without obstruction (principal)
CPT/HCPCS: 43262; 43264; 43276; C1876; 76000-TC-FY; 82962; C1874

== ENCOUNTER 2024-05-02 07:20 | Observation (INO) | payer MEDICARE, OTHER ==
[2024-05-02 07:59] VITALS: BMI 29.2
[2024-05-02] MEDS: SODIUM CHLORIDE 0.9% 500 ML INFUS.BAG IV ONE ×2 (08:51→09:20)
[2024-05-02] MEDS ORDERED: ACETAMINOPHEN INJECTION 100 ML ONE (08:55)
[2024-05-02] MEDS ORDERED: FAMOTIDINE 20 MG/50 ML IVPB 20 MG/50 ML MG IVPB ONE (08:56)
[2024-05-02] MEDS ORDERED: MAG HYDROX/AL HYDROX/SIMETH 30 ML UNIT-DOSE CUP ONE (08:56)
[2024-05-02 09:17] LABS: ABSOLUTE IMMATURE GRANULOCYTES 0.06 x10^3/uL (0.0-0.031); BASOPHILS # 0.02 x10^3/uL (0.01-0.08); HEMATOCRIT 46.2 % (40.1-51.0); HEMOGLOBIN 15.3 g/dL (13.7-17.5); MCHC 33.1 g/dl (32.3-36.5); MEAN CELL VOLUME 92.4 fl (79.0-92.2); MONOCYTE # 1.01 x10^3/uL (0.30-0.82); MONOCYTE % 7.1 % (5.3-12.2); RDW 13.3 % (12.2-16.4)
[2024-05-02] MEDS: FAMOTIDINE 20 MG/50 ML IVPB 20 MG/50 ML MG IVPB ONE (09:20)
[2024-05-02] MEDS: MAG HYDROX/AL HYDROX/SIMETH 30 ML UNIT-DOSE CUP PO ONE (09:20)
[2024-05-02] MEDS: ACETAMINOPHEN 1000 MG/100 ML BAG IVPB ONE (09:20)
[2024-05-02 09:24] LABS: VENOUS BASE EXCESS -2.4 mmol/L (-2-2); VENOUS PCO2 37.8 mmHg (38-52); VENOUS PH 7.387 (7.310-7.410)
[2024-05-02 09:40] LABS: INR 1.05 (0.83-1.09); PROTHROMBIN TIME (PATIENT) 11.5 SEC (9.7-13.0)
[2024-05-02 09:50] LABS: MAGNESIUM 2.2 mg/dL (1.8-2.4)
[2024-05-02 09:55] LABS: POTASSIUM 5.7 mmol/L (3.5-5.1)
[2024-05-02 09:57] LABS: CALCIUM 10.3 mg/dL (8.5-10.1)
[2024-05-02 09:58] LABS: ALBUMIN 4.2 g/dl (3.4-5.0)
[2024-05-02 10:01] LABS: CREATININE 1.2 mg/dL (0.55-1.3)
[2024-05-02 10:02] LABS: BILIRUBIN,TOTAL 0.8 mg/dL (0.2-1); TOT PROT 8.9 g/dl (6.4-8.2)
[2024-05-02 10:16] LABS: LACTIC ACID 3.4 mmol/L (0.4-2.0)
[2024-05-02] MEDS: LACTATED RINGERS SOLUTION 1000 ML INFUS.BAG IV ONE (11:38)
[2024-05-02 11:56] LABS: URINE APPEARANCE CLEAR; URINE BILIRUBIN NEGATIVE (NEGATIVE); URINE COLOR YELLOW; URINE GLUCOSE (UA) 1+ (NEGATIVE); URINE KETONE NEGATIVE (NEGATIVE); URINE LEUK ESTERASE NEGATIVE (NEGATIVE); URINE NITRITE NEGATIVE (NEGATIVE); URINE PROTEIN NEGATIVE (NEGATIVE); URINE UROBILINOGEN 0.2 mg/dL (0.2-1.0)
[2024-05-02] MEDS ORDERED: PIPERACILLIN/TAZOB 4.5 GM 4.5 GM/100 ML BAG IVPB ONE (12:17)
[2024-05-02] MEDS: PIPERACILLIN/TAZOB 4.5 GM 4.5 GM in DEXTROSE 5%-WATER 100 ML IVPB ONE (12:18)
[2024-05-02] MEDS ORDERED: ACETAMINOPHEN 325 MG TABLET (FP) PO PRN (12:54)
[2024-05-02] MEDS ORDERED: MAG HYDROX/AL HYDROX/SIMETH 30 ML UNIT-DOSE CUP PO PRN (13:15)
[2024-05-02 13:20] LABS: LACTIC ACID 3.2 mmol/L (0.4-2.0)
[2024-05-02] MEDS ORDERED: METOPROLOL TARTRATE 25 MG TABLET (FP) ONE (13:46)
[2024-05-02] MEDS ORDERED: ALBUTEROL SO4 HFA INHALER IH SCH (14:00)
[2024-05-02] MEDS: metoPROLOL SUCCINATE 25 MG TAB.SR.24H (FP) PO SCH (14:02)
[2024-05-02] MEDS: SODIUM CHLORIDE 1,000 ML IV SCH (14:02)
[2024-05-02] MEDS: hydrALAZINE HCL 25 MG TABLET (FP) PO SCH (14:31)
[2024-05-02] MEDS ORDERED: HEPARIN NA (PORCINE) 5,000 UNITS/ML 1ML VIAL ONE (14:46)
[2024-05-02] MEDS: HEPARIN NA (PORCINE) 5,000 UNITS/ML 1ML VIAL SQ SCH (14:57)
[2024-05-02] MEDS: FLUTICASONE/UMECLIDIN/VILANTER(200-62.5-25 TRELEGY ELLIPTA) INAHLER IH SCH (16:19)
[2024-05-02] MEDS: INSULIN ASPART SLIDING SCALE (NOVOLOG) 1 VIAL SQ SCH (17:20)
[2024-05-02] MEDS: ALBUTEROL SO4 HFA INHALER IH PRN (17:29)
[2024-05-02 18:07] LABS: LACTIC ACID 2.1 mmol/L (0.4-2.0)
[2024-05-02] MEDS: PIPERACILLIN/TAZOB 3.375 GM 50 ML IVPB SCH (21:30)
[2024-05-03] MEDS: SODIUM CHLORIDE 1,000 ML IV SCH (09:24)
[2024-05-03] MEDS: ASPIRIN 81 MG CHEWABLE TABLETS PO SCH (09:24)
[2024-05-03 09:26] LABS: POTASSIUM 4.4 mmol/L (3.5-5.1)
[2024-05-03 09:53] LABS: BLOOD UREA NITROGEN 29.4 mg/dL (7-18); HEMATOCRIT 41.8 % (40.1-51.0); HEMOGLOBIN 13.4 g/dL (13.7-17.5); MCHC 32.1 g/dl (32.3-36.5); MEAN CELL VOLUME 93.5 fl (79.0-92.2); MEAN PLT VOLUME 11.2 fl (9.4-12.4); PLATELET COUNT 183 x10^3/uL (163-337); RDW 13.7 % (12.2-16.4)
[2024-05-03 09:54] LABS: ALBUMIN 3.7 g/dl (3.4-5.0)
[2024-05-03 09:56] LABS: CREATININE 1.3 mg/dL (0.55-1.3)
[2024-05-03 09:57] LABS: BILIRUBIN,DIRECT 0.2 mg/dL (0.0-0.2)
[2024-05-03 09:59] LABS: BILIRUBIN,TOTAL 0.7 mg/dL (0.2-1)
[2024-05-03] MEDS ORDERED: cefOXitin SODIUM 2 GM VIAL (RESTRICTED TO ID) IVPB ONE (13:06)
[2024-05-03] MEDS ORDERED: BUPIVACAINE HCL/PF 0.25% (2.5MG/ML) 10 ML VIAL ONE (13:06)
[2024-05-03] MEDS ORDERED: PROPOFOL 20 ML ONE (13:49)
[2024-05-03] MEDS ORDERED: LIDOCAINE HCL/PF 2% SDV 5ML VIAL ONE (13:49)
[2024-05-03] MEDS ORDERED: MIDAZOLAM HCL 2 MG/2 ML SINGLE DOSE VIAL ONE (13:50)
[2024-05-03] MEDS: cefOXitin SODIUM 1 GM VIAL (RESTRICTED TO ID) IVPB ONE (14:15)
[2024-05-03] MEDS ORDERED: CEFOXITIN SODIUM 2 GM IVPB ONE (14:16)
[2024-05-03] MEDS ORDERED: ROCURONIUM BROMIDE 50 MG/5 ML SYRINGE ONE (14:20)
[2024-05-03] MEDS: BUPIVACAINE HCL/PF 0.25% (2.5MG/ML) 10 ML VIAL IJ ONE ×2 (14:21→14:26)
[2024-05-03] MEDS ORDERED: SUGAMMADEX SODIUM 200 MG/2 ML VIAL ONE (15:19)
[2024-05-03] MEDS ORDERED: PROMETHAZINE HCL 25 MG/1 ML VIAL IVPB PRN (15:40)
[2024-05-03] MEDS ORDERED: ALBUTEROL SO4 HFA INHALER IH PRN (15:42)
[2024-05-03] MEDS ORDERED: SODIUM CHLORIDE 1,000 ML IV SCH (15:42)
[2024-05-03] MEDS ORDERED: morphine CARPU-JECT 2 MG/1 ML DISP.SYRIN IVPUSH PRN (15:42)
[2024-05-03] MEDS ORDERED: LACTATED RINGERS SOLUTION 1,000 ML IV SCH (15:45)
[2024-05-03] MEDS: ACETAMINOPHEN 1000 MG/100 ML BAG IVPB ONE (16:00)
[2024-05-03] MEDS: INSULIN ASPART SLIDING SCALE (NOVOLOG) 1 VIAL SQ SCH (16:33)
[2024-05-03] MEDS ORDERED: ONDANSETRON 4 MG/2 ML VIAL ONE (16:37)
[2024-05-03] MEDS: ONDANSETRON 4 MG/2 ML VIAL IVPUSH PRN (16:38)
[2024-05-03 17:55] VITALS: RESP 18
[2024-05-03] MEDS: LACTATED RINGERS SOLUTION 1,000 ML/1,000 ML INFUS.BAG IV SCH (18:14)
[2024-05-03] MEDS: PIPERACILLIN/TAZOB 3.375 GM 50 ML IVPB SCH (20:13)
[2024-05-03] MEDS ORDERED: PIPERACILLIN/TAZOB 3.375 GM 50 ML IVPB SCH (21:00)
[2024-05-03] MEDS: oxyCODONE HCL 5 MG TABLET PO PRN (21:29)
[2024-05-03] MEDS: ACETAMINOPHEN 325 MG TABLET (FP) PO PRN (21:30)
[2024-05-03] MEDS: hydrALAZINE HCL 25 MG TABLET (FP) PO SCH (21:31)
[2024-05-03] MEDS: HEPARIN NA (PORCINE) 5,000 UNITS/ML 1ML VIAL SQ SCH (21:31)
[2024-05-04 08:33] LABS: ABSOLUTE IMMATURE GRANULOCYTES 0.07 x10^3/uL (0.0-0.031); EOSINOPHIL % 3.1 % (0.8-7.0); EOSINOPHILS # 0.44 x10^3/uL (0.04-0.54); HEMATOCRIT 41.7 % (40.1-51.0); HEMOGLOBIN 13.2 g/dL (13.7-17.5); MCHC 31.7 g/dl (32.3-36.5); MEAN CELL VOLUME 95.6 fl (79.0-92.2); MEAN PLT VOLUME 10.6 fl (9.4-12.4); MONOCYTE # 1.43 x10^3/uL (0.30-0.82); MONOCYTE % 10.2 % (5.3-12.2); PLATELET COUNT 192 x10^3/uL (163-337); RDW 13.6 % (12.2-16.4)
[2024-05-04 09:31] LABS: POTASSIUM 4.6 mmol/L (3.5-5.1)
[2024-05-04 09:37] LABS: ALBUMIN 3.6 g/dl (3.4-5.0); BLOOD UREA NITROGEN 24.4 mg/dL (7-18); CALCIUM 9.5 mg/dL (8.5-10.1)
[2024-05-04 09:40] LABS: CREATININE 1.3 mg/dL (0.55-1.3)
[2024-05-04 09:42] LABS: BILIRUBIN,TOTAL 0.7 mg/dL (0.2-1)
[2024-05-04] MEDS: ASPIRIN 81 MG CHEWABLE TABLETS PO SCH (09:59)
[2024-05-04] MEDS: MAG HYDROX/AL HYDROX/SIMETH 30 ML UNIT-DOSE CUP PO PRN (09:59)
[2024-05-04] MEDS: FOLIC ACID 1 MG TABLET (FP) PO SCH (09:59)
[2024-05-04] MEDS: THIAMINE 100 MG TABLET PO SCH (09:59)
[2024-05-04] MEDS: MULTIVITAMINS (DAILY MVI) TABLET (FP) PO SCH (09:59)
[2024-05-04] MEDS: metoPROLOL SUCCINATE 25 MG TAB.SR.24H (FP) PO SCH (09:59)
[2024-05-04] MEDS ORDERED: MULTIVITAMINS (DAILY MVI) TABLET (FP) PO SCH (10:00)
[2024-05-04] MEDS: FLUTICASONE/UMECLIDIN/VILANTER(200-62.5-25 TRELEGY ELLIPTA) INAHLER IH SCH (10:00)
[2024-05-04] MEDS ORDERED: THIAMINE 100 MG TABLET PO SCH (10:00)
[2024-05-04] MEDS ORDERED: FOLIC ACID 1 MG TABLET (FP) PO SCH (10:00)
[2024-05-04 14:08] VITALS: BP 135/76; PULSE 87; TEMP 97.2
== END 2024-05-04 14:35 | disposition home or self-care (01) ==
LOC: JER 07:20 → JERBED 12:01 → INTOOBSV 12:01 → UNDOADMOB 12:01 → J5S 15:07 → JERBED 15:07 → J5S 15:09 → JERBED 15:09
PROVIDERS: ADMIT Student in an Organized Health Care Education/Training Program; ATTEND Internal Medicine
PROC: 3E033NZ Introduction of Analgesics, Hypnotics, Sedatives into Peripheral Vein, Percutaneous Approach (ICD-10-PCS; principal; 2024-05-02)
PROC: 3E0337Z Introduction of Electrolytic and Water Balance Substance into Peripheral Vein, Percutaneous Approach (ICD-10-PCS; 2024-05-02)
PROC: 3E03329 Introduction of Other Anti-infective into Peripheral Vein, Percutaneous Approach (ICD-10-PCS; 2024-05-02)
PROC: 0FT44ZZ Resection of Gallbladder, Percutaneous Endoscopic Approach (ICD-10-PCS; 2024-05-03)
DX: K81.0 Acute cholecystitis (principal); J44.9 Chronic obstructive pulmonary disease, unspecified; D72.829 Elevated white blood cell count, unspecified; E87.20 Acidosis, unspecified; E11.9 Type 2 diabetes mellitus without complications; Z85.46 Personal history of malignant neoplasm of prostate; Z87.891 Personal history of nicotine dependence; Z87.442 Personal history of urinary calculi
CPT/HCPCS: 36415; 71046-TC-FY; 76705-TC; 80048; 80053; 80076; 81003; 82010; 82803; 82962; 83605; 83690; 83735; 84484; 85025; 85027; 85610; 85730; 87040; 87086; 88304-TC; 93005; 93010; 94010; 94760; 96361; 96365; 96367; 96375; 96376; 99285-25; G0378; J0131; J1644

== ENCOUNTER 2024-07-29 06:39 | Day surgery (SDC) | payer MEDICARE, OTHER ==
[2024-07-21 12:44] VITALS: BMI 30.4
[2024-07-29] MEDS ORDERED: MIDAZOLAM HCL 2 MG/2 ML SINGLE DOSE VIAL ONE (08:17)
[2024-07-29 09:26] VITALS: TEMP 98
[2024-07-29 10:11] VITALS: BP 131/78; PULSE 77; RESP 12
== END 2024-07-29 10:23 | disposition home or self-care (01) ==
LOC: JASU-ENDO 06:39
PROVIDERS: ATTEND Internal Medicine Gastroenterology
PROC: 0FC98ZZ Extirpation of Matter from Common Bile Duct, Via Natural or Artificial Opening Endoscopic (ICD-10-PCS; principal; 2024-07-29 08:00)
DX: K80.50 Calculus of bile duct without cholangitis or cholecystitis without obstruction (principal)
CPT/HCPCS: 76000-TC-FY; 82962

== ENCOUNTER 2024-08-16 05:46 | Emergency (ER) | payer MEDICARE, OTHER ==
[2024-08-16 06:21] VITALS: BP 120/65; PULSE 84; RESP 17; TEMP 98.5; BMI 30.8
== END 2024-08-16 06:49 | disposition home or self-care (01) ==
LOC: JER 05:46
DX: F10.230 Alcohol dependence with withdrawal, uncomplicated (principal); Y90.9 Presence of alcohol in blood, level not specified
CPT/HCPCS: 99285-25